=== PATIENT | male | born 1995 | race Caucasian/White ===

== ENCOUNTER 2021-03-14 16:40 | Inpatient (IN) | payer OTHER ==
[~2021-03-14] VITALS: Ht 182.9 cm; Wt 85.8 kg
[2021-03-14 17:56] LABS: BILIRUBIN, URINE MANUAL NEGATIVE (NEGATIVE); GLUCOSE, URINE (UA) MANUAL NEGATIVE (NEGATIVE); KETONE, URINE MANUAL NEGATIVE (NEGATIVE); UROBILINOGEN, URINE MANUAL NORMAL (NORMAL)
[2021-03-14 17:59] LABS: BACTERIA, URINE NONE SEEN; HYALINE CAST, URINE NONE SEEN /lpf (0-1); RBC, URINE 0-1 /hpf (0-3); SQUAMOUS EPITHELIAL CELL URINE SMALL AMOUNT /hpf (SMALL AMT)
[2021-03-14] MEDS ORDERED: NS 2,570 ML in IV 1 EA IV ONE (19:10)
[2021-03-14] MEDS ORDERED: MORPHINE 4 MG/ML 1ML VIAL/SYRINGE (J2270) IV ONE (19:10)
[2021-03-14 19:46] LABS: BASO % 0.2 % (0.0-1.0); EOS # 0.1 10^3/uL (0.0-0.5); EOS % 0.7 % (0.0-3.0); HEMATOCRIT 43.5 % (42.0-52.0); HEMOGLOBIN 15.1 g/dl (13.5-17.5); LYMPH # 1.2 10^3/uL (1.5-5.0); LYMPH % 13.9 % (24.0-44.0); MEAN CORPUSCULAR HEMOGLOBIN 31.3 pg (27.0-33.0); MEAN CORPUSCULAR HGB CONC 34.7 g/dl (32.0-36.5); MEAN CORPUSCULAR VOLUME 90.2 fl (80.0-96.0); MONO # 0.5 10^3/uL (0.0-0.8); MONO % 5.9 % (2.0-8.0); NEUTROPHILS # 6.7 10^3/uL (1.5-8.5); NEUTROPHILS % 78.8 % (36.0-66.0); PLATELET COUNT, AUTOMATED 248 10^3/uL (150-450); RED BLOOD COUNT 4.82 10^6/uL (4.30-6.10); WHITE BLOOD COUNT 8.5 10^3/uL (4.0-10.0)
[2021-03-14] MEDS ORDERED: HOME MED LIST COMPLETE! XX SCH (19:50)
[2021-03-14 20:48] LABS: ALBUMIN 4.3 GM/DL (3.2-5.2); ALT/SGPT 228 U/L (12-78); BILIRUBIN,DIRECT 0.2 MG/DL (0.0-0.2); BILIRUBIN,TOTAL 0.7 MG/DL (0.2-1.0); LIPASE 94 U/L (73-393); TOTAL PROTEIN 7.1 GM/DL (6.4-8.2)
[2021-03-14 21:30] LABS: CPK CREATINE PHOSPHOKINASE 51490 U/L (39-308)
[2021-03-14] MEDS: NS 1,000 ML IV SCH (22:10)
[2021-03-14 22:46] LABS: HEPATITIS C VIRUS ABY INDEX 0.1 INDEX (<0.8)
[2021-03-14 22:47] LABS: HEPATITIS B CORE ANTIBODY IGM NEGATIVE (NEGATIVE)
[2021-03-14] MEDS ORDERED: LIDOCAINE 5% (LIDODERM) PATCH TD ONE (22:50)
[2021-03-14] MEDS ORDERED: **NOTE PATIENT COMMENT** MISC XX SCH (22:50)
[2021-03-15] MEDS: ACETAMINOPHEN TAB 650MG DOSE (2X325MG) PO PRN ×3 (00:31→23:59)
[2021-03-15 00:49] LABS: RSV AMPLIFICATION NEGATIVE (NEGATIVE)
[2021-03-15 01:45] VITALS: BP 116/73
[2021-03-15 01:53] LABS: BLOOD UREA NITROGEN 14 MG/DL (7-18); CALCIUM LEVEL 7.9 MG/DL (8.5-10.1); CARBON DIOXIDE LEVEL 28 MEQ/L (21-32); CHLORIDE LEVEL 113 MEQ/L (98-107); CPK CREATINE PHOSPHOKINASE 59462 U/L (39-308); CREATININE FOR GFR 0.97 MG/DL (0.70-1.30); GLOMERULAR FILTRATION RATE > 60.0 (>60); GLUCOSE, FASTING 107 MG/DL (70-100); MAGNESIUM LEVEL 1.9 MG/DL (1.8-2.4); POTASSIUM SERUM 3.9 MEQ/L (3.5-5.1); SODIUM LEVEL 145 MEQ/L (136-145); TROPONIN I < 0.02 NG/ML (< 0.10)
[2021-03-15] MEDS ORDERED: oxyCODONE 5MG TAB PO ONE (02:15)
[2021-03-15] MEDS: NS 1,000 ML IV SCH ×7 (02:26→23:43)
[2021-03-15 06:00] VITALS: BP 112/69
[2021-03-15 06:16] LABS: BASO % 0.5 % (0.0-1.0); EOS # 0.2 10^3/uL (0.0-0.5); HEMATOCRIT 37.1 % (42.0-52.0); MEAN CORPUSCULAR HEMOGLOBIN 31.2 pg (27.0-33.0); MEAN CORPUSCULAR HGB CONC 33.4 g/dl (32.0-36.5); MEAN CORPUSCULAR VOLUME 93.2 fl (80.0-96.0); MONO # 0.5 10^3/uL (0.0-0.8); MONO % 8.1 % (2.0-8.0); NEUTROPHILS # 3.5 10^3/uL (1.5-8.5); NEUTROPHILS % 56.1 % (36.0-66.0); PLATELET COUNT, AUTOMATED 196 10^3/uL (150-450); RED BLOOD COUNT 3.98 10^6/uL (4.30-6.10); WHITE BLOOD COUNT 6.3 10^3/uL (4.0-10.0)
[2021-03-15 06:25] LABS: HEMOGLOBIN 12.4 g/dl (13.5-17.5)
[2021-03-15 07:48] LABS: BLOOD UREA NITROGEN 11 MG/DL (7-18); CALCIUM LEVEL 7.8 MG/DL (8.5-10.1); CARBON DIOXIDE LEVEL 25 MEQ/L (21-32); CHLORIDE LEVEL 113 MEQ/L (98-107); CPK CREATINE PHOSPHOKINASE 52290 U/L (39-308); GLOMERULAR FILTRATION RATE > 60.0 (>60); GLUCOSE, FASTING 93 MG/DL (70-100); SODIUM LEVEL 143 MEQ/L (136-145)
[2021-03-15 08:19] LABS: HEPATITIS B SURFACE ANTIGEN NEGATIVE (NEGATIVE)
[2021-03-15 10:00] VITALS: BP 118/76
[2021-03-15 10:13] LABS: BLOOD UREA NITROGEN 10 MG/DL (7-18); CARBON DIOXIDE LEVEL 26 MEQ/L (21-32); CHLORIDE LEVEL 114 MEQ/L (98-107); CPK CREATINE PHOSPHOKINASE 50825 U/L (39-308); CREATININE FOR GFR 0.74 MG/DL (0.70-1.30); GLOMERULAR FILTRATION RATE > 60.0 (>60); GLUCOSE, FASTING 99 MG/DL (70-100); SODIUM LEVEL 144 MEQ/L (136-145)
[2021-03-15 14:00] VITALS: BP 118/76
[2021-03-15] MEDS: MORPHINE 2 MG/ML 1ML VIAL (J2270) IV PRN ×2 (14:54→20:21)
[2021-03-15 18:00] VITALS: BP 127/87
[2021-03-15 22:00] VITALS: BP 130/87
[2021-03-16 02:00] VITALS: BP 112/78
[2021-03-16] MEDS: NS 1,000 ML IV SCH ×7 (02:57→23:37)
[2021-03-16 06:00] VITALS: BP 113/79
[2021-03-16] MEDS: ACETAMINOPHEN TAB 650MG DOSE (2X325MG) PO PRN (06:10)
[2021-03-16] MEDS ORDERED: MORPHINE 4 MG/ML 1ML VIAL/SYRINGE (J2270) IV ONE (06:20)
[2021-03-16 06:23] LABS: BASO % 0.5 % (0.0-1.0); EOS # 0.2 10^3/uL (0.0-0.5); EOS % 3.1 % (0.0-3.0); HEMATOCRIT 38.2 % (42.0-52.0); HEMOGLOBIN 12.8 g/dl (13.5-17.5); LYMPH # 1.6 10^3/uL (1.5-5.0); LYMPH % 28.2 % (24.0-44.0); MEAN CORPUSCULAR HEMOGLOBIN 31.1 pg (27.0-33.0); MEAN CORPUSCULAR HGB CONC 33.5 g/dl (32.0-36.5); MEAN CORPUSCULAR VOLUME 92.7 fl (80.0-96.0); MONO # 0.5 10^3/uL (0.0-0.8); NEUTROPHILS # 3.5 10^3/uL (1.5-8.5); NEUTROPHILS % 59.9 % (36.0-66.0); PLATELET COUNT, AUTOMATED 196 10^3/uL (150-450); RED BLOOD COUNT 4.12 10^6/uL (4.30-6.10); WHITE BLOOD COUNT 5.8 10^3/uL (4.0-10.0)
[2021-03-16 07:48] LABS: ALBUMIN 3.3 GM/DL (3.2-5.2); ALT/SGPT 276 U/L (12-78); BILIRUBIN,TOTAL 0.3 MG/DL (0.2-1.0); BLOOD UREA NITROGEN 6 MG/DL (7-18); CALCIUM LEVEL 8.3 MG/DL (8.5-10.1); CARBON DIOXIDE LEVEL 28 MEQ/L (21-32); CHLORIDE LEVEL 111 MEQ/L (98-107); CPK CREATINE PHOSPHOKINASE 50770 U/L (39-308); CREATININE FOR GFR 0.55 MG/DL (0.70-1.30); GLOMERULAR FILTRATION RATE > 60.0 (>60); GLUCOSE, FASTING 93 MG/DL (70-100); POTASSIUM SERUM 4.1 MEQ/L (3.5-5.1); SODIUM LEVEL 143 MEQ/L (136-145); TOTAL PROTEIN 5.5 GM/DL (6.4-8.2)
[2021-03-16 14:00] VITALS: BP 129/84
[2021-03-16] MEDS: traMADol 50 MG TAB PO PRN (15:15)
[2021-03-16] MEDS: PERCOCET 5MG/325MG TAB PO PRN (18:59)
[2021-03-16 22:00] VITALS: BP 150/97
[2021-03-17] MEDS: PERCOCET 5MG/325MG TAB PO PRN ×3 (00:15→20:58)
[2021-03-17] MEDS: NS 1,000 ML IV SCH ×7 (02:57→21:23)
[2021-03-17 06:00] VITALS: BP 113/70
[2021-03-17 06:22] LABS: BASO % 0.2 % (0.0-1.0); EOS # 0.1 10^3/uL (0.0-0.5); EOS % 2.8 % (0.0-3.0); HEMATOCRIT 37.5 % (42.0-52.0); HEMOGLOBIN 12.5 g/dl (13.5-17.5); LYMPH # 1.7 10^3/uL (1.5-5.0); LYMPH % 33.3 % (24.0-44.0); MEAN CORPUSCULAR HEMOGLOBIN 31.3 pg (27.0-33.0); MEAN CORPUSCULAR HGB CONC 33.3 g/dl (32.0-36.5); MONO # 0.3 10^3/uL (0.0-0.8); MONO % 6.9 % (2.0-8.0); NEUTROPHILS # 2.8 10^3/uL (1.5-8.5); NEUTROPHILS % 56.4 % (36.0-66.0); PLATELET COUNT, AUTOMATED 192 10^3/uL (150-450); RED BLOOD COUNT 3.99 10^6/uL (4.30-6.10)
[2021-03-17 07:35] LABS: BLOOD UREA NITROGEN 6 MG/DL (7-18); CALCIUM LEVEL 8.1 MG/DL (8.5-10.1); CARBON DIOXIDE LEVEL 27 MEQ/L (21-32); CHLORIDE LEVEL 111 MEQ/L (98-107); CREATININE FOR GFR 0.58 MG/DL (0.70-1.30); GLOMERULAR FILTRATION RATE > 60.0 (>60); GLUCOSE, FASTING 85 MG/DL (70-100); POTASSIUM SERUM 3.8 MEQ/L (3.5-5.1); SODIUM LEVEL 144 MEQ/L (136-145)
[2021-03-17 07:36] LABS: CPK CREATINE PHOSPHOKINASE 37960 U/L (39-308)
[2021-03-17] MEDS: traMADol 50 MG TAB PO PRN (08:08)
[2021-03-17 14:00] VITALS: BP 121/79
[2021-03-17 22:00] VITALS: BP 134/86
[2021-03-18] MEDS: NS 1,000 ML IV SCH ×4 (00:43→10:43)
[2021-03-18 06:00] VITALS: BP 116/67
[2021-03-18 06:32] LABS: BASO % 0.3 % (0.0-1.0); EOS # 0.2 10^3/uL (0.0-0.5); EOS % 2.9 % (0.0-3.0); HEMATOCRIT 38.2 % (42.0-52.0); LYMPH # 1.5 10^3/uL (1.5-5.0); LYMPH % 23.1 % (24.0-44.0); MEAN CORPUSCULAR HEMOGLOBIN 31.4 pg (27.0-33.0); MEAN CORPUSCULAR VOLUME 92.3 fl (80.0-96.0); MONO # 0.5 10^3/uL (0.0-0.8); MONO % 7.2 % (2.0-8.0); NEUTROPHILS # 4.4 10^3/uL (1.5-8.5); NEUTROPHILS % 66.2 % (36.0-66.0); PLATELET COUNT, AUTOMATED 197 10^3/uL (150-450); RED BLOOD COUNT 4.14 10^6/uL (4.30-6.10); WHITE BLOOD COUNT 6.6 10^3/uL (4.0-10.0)
[2021-03-18] MEDS: PERCOCET 5MG/325MG TAB PO PRN (06:45)
[2021-03-18 08:10] LABS: BLOOD UREA NITROGEN 6 MG/DL (7-18); CALCIUM LEVEL 8.6 MG/DL (8.5-10.1); CARBON DIOXIDE LEVEL 29 MEQ/L (21-32); CHLORIDE LEVEL 110 MEQ/L (98-107); CPK CREATINE PHOSPHOKINASE 18226 U/L (39-308); CREATININE FOR GFR 0.62 MG/DL (0.70-1.30); GLOMERULAR FILTRATION RATE > 60.0 (>60); GLUCOSE, FASTING 92 MG/DL (70-100); POTASSIUM SERUM 3.8 MEQ/L (3.5-5.1); SODIUM LEVEL 143 MEQ/L (136-145)
== END 2021-03-18 11:31 | disposition home or self-care (01) | DRG 558 ==
LOC: M ED 16:40 → M ED INP 22:50 → ENRESERV 03-15 00:16 → M MSPAV 03-15 01:40
PROVIDERS: ADMIT Family Medicine; ATTEND Neuromusculoskeletal Medicine & OMM
DX: M62.82 Rhabdomyolysis (principal); R74.01 Elevation of levels of liver transaminase levels; F17.220 Nicotine dependence, chewing tobacco, uncomplicated; R03.0 Elevated blood-pressure reading, without diagnosis of hypertension; K58.0 Irritable bowel syndrome with diarrhea; Z90.49 Acquired absence of other specified parts of digestive tract; Z88.8 Allergy status to other drugs, medicaments and biological substances

== ENCOUNTER 2021-06-12 23:33 | Inpatient (IN) | payer OTHER ==
[~2021-06-12] VITALS: Ht 182.9 cm; Wt 81.8 kg
--- OUTSIDE RECORDS SUMMARY | 2021-06-12 23:38 | CCD ---
Author Author [facility] Organization [facility] Address Unknown Phone Unavailable Support Name Relationship Address Phone [facility] Next Of Kin [address] [place] [address] Unavailable DAKOTAH MULLER Next Of Kin [address] [place] [address] STACY MULLER Next Of Kin [address] [place], [place] [id number] STACY MULLER [address] [place] [address] Unavailable Re-disclosure Warning The records that you are about to access may contain information from federally-assisted alcohol or drug abuse programs. If such information is present, then the following federally mandated warning applies: This information has been disclosed to you from records protected by federal confidentiality rules (42 CFR part 2). The federal rules prohibit you from making any further disclosure of this information unless further disclosure is expressly permitted by the written consent of the person to whom it pertains or as otherwise permitted by 42 CFR part 2. A general authorization for the release of medical or other information is NOT sufficient for this purpose. The Federal rules restrict any use of the information to criminally investigate or prosecute any alcohol or drug abuse patient.The records that you are about to access may contain highly sensitive health information, the redisclosure of which is protected by Article 27-F of the [facility] Public Health law. If you continue you may have access to information: Regarding HIV / AIDS; Provided by facilities licensed or operated by the [facility] Office of Mental Health; or Provided by the [facility] Office for People With Developmental Disabilities. If such information is present, then the following [facility] mandated warning applies: This information has been disclosed to you from confidential records which are protected by state law. State law prohibits you from making any further disclosure of this information without the specific written consent of the person to whom it pertains, or as otherwise permitted by law. Any unauthorized further disclosure in violation of state law may result in a fine or senior care sentence or both. A general authorization for the release of medical or other information is NOT sufficient authorization for further disc losure. Medications No Information Insurance Providers Payer name Policy type / Coverage type Policy ID Covered green party ID Covered green party's relationship to sanchez Policy Sanchez Plan Information [facility] [id number] Problems, Conditions, and Diagnoses No Information Surgeries/Procedures No Information Results ID Date Data Source [id number] 04/30/2021 02:20:00 PM EDT [facility] Name Value Range Interpretation Code Description Data Lindy rce(s) Supporting Document(s) SARS coronavirus 2 RNA Not Detected [facility] This lab was ordered by [facility] and reported by [facility]. ID Date Data Source [id number] 03/14/2021 11:56:00 PM EDT [facility] Name Value Range Interpretation Code Description Data Lindy rce(s) Supporting Document(s) SARS coronavirus 2 RNA [Presence] in Res piratory specimen by GIN with probe detection NEGATIVE [facility] This lab was ordered by [facility] a nd reported by [facility]. Procedure Social History No Information
[2021-06-12] MEDS ORDERED: SERT25TA21 PO (23:48)
[2021-06-12] MEDS ORDERED: HYDR-4570 PO (23:48)
[2021-06-13 01:06] LABS: HEMOGLOBIN 15.3 g/dl (13.5-17.5); MEAN CORPUSCULAR HGB CONC 33.3 g/dl (32.0-36.5); MEAN CORPUSCULAR VOLUME 90.2 fl (80.0-96.0); PLATELET COUNT, AUTOMATED 294 10^3/uL (150-450)
[2021-06-13 01:43] LABS: AMPHETAMINES LEVEL URINE NEGATIVE (NEGATIVE); BARBITURATES URINE NEGATIVE (NEGATIVE); BENZODIAZEPINES URINE NEGATIVE (NEGATIVE); CANNABINOIDS URINE NEGATIVE (NEGATIVE); COCAINE METABOLITE URINE NEGATIVE (NEGATIVE); METHADONE URINE NEGATIVE (NEGATIVE); OPIATES URINE NEGATIVE (NEGATIVE); PHENCYCLIDINE URINE NEGATIVE (NEGATIVE)
[2021-06-13 01:44] LABS: ACETAMINOPHEN LEVEL < 2.0 UG/ML (10.0-30.0); ALBUMIN 4.7 GM/DL (3.2-5.2); ALT/SGPT 45 U/L (12-78); BILIRUBIN,DIRECT 0.2 MG/DL (0.0-0.2); BILIRUBIN,TOTAL 0.5 MG/DL (0.2-1.0); BLOOD UREA NITROGEN 12 MG/DL (7-18); CALCIUM LEVEL 9.4 MG/DL (8.5-10.1); CARBON DIOXIDE LEVEL 30 MEQ/L (21-32); CHLORIDE LEVEL 106 MEQ/L (98-107); CREATININE FOR GFR 0.88 MG/DL (0.70-1.30); ETHYL ALCOHOL (ETHANOL) 0.142 % (0.000-0.010); GLOMERULAR FILTRATION RATE > 60.0 (>60); GLUCOSE, FASTING 96 MG/DL (70-100); POTASSIUM SERUM 3.6 MEQ/L (3.5-5.1); SALICYLATE LEVEL < 1.7 MG/DL (5.0-30.0); SODIUM LEVEL 139 MEQ/L (136-145); TOTAL PROTEIN 7.9 GM/DL (6.4-8.2)
[2021-06-13 06:08] LABS: RSV AMPLIFICATION NEGATIVE (NEGATIVE)
[2021-06-13] MEDS ORDERED: PREV1.1G TEETH (06:33)
[2021-06-13] MEDS ORDERED: HOME MED LIST COMPLETE! XX SCH (06:35)
[2021-06-13] MEDS ORDERED: SERTRALINE HCL 25 MG TABLET PO ONE (08:15)
[2021-06-13] MEDS ORDERED: ACETAMINOPHEN TAB 650MG DOSE (2X325MG) PO PRN (08:30)
[2021-06-13] MEDS ORDERED: traZODone 50 MG TAB PO PRN (08:30)
[2021-06-13] MEDS ORDERED: hydrOXYzine 25 MG TAB PO PRN (08:30)
[2021-06-13] MEDS ORDERED: MAALOX 30 ML SUSP *UDC PO PRN (08:30)
[2021-06-13] MEDS ORDERED: MOM 30ML SUSPENSION UDC PO PRN (08:30)
--- OUTSIDE RECORDS SUMMARY | 2021-06-13 08:40 | CCD ---
Author Author [facility] Organization [facility] Address Unknown Phone Unavailable Support Name Relationship Address Phone [facility] Next Of Kin [address] [place] [address] Unavailable DAKOTAH MULLER Next Of Kin [address] [place] [address] STACY MULLER Next Of Kin [address] [place] [address] STACY MULLER [address] [place] [address] Unavailable Re-disclosure Warning The records that you [...] is protected by Article 27-F of the [facility] Public Health law. If you continue you may have access to information: Regarding HIV / AIDS; Provided by facilities licensed or operated by the [facility] Office of Mental Health; or Provided by the [facility] Office for People With Developmental Disabilities. If such information is present, then the following [facility] mandated warning applies: This information has been [...] law may result in a fine or skilled nursing sentence or both. A general authorization for the release of medical or other information is NOT sufficient authorization for further disc losure. Medications No Information Insurance Providers Payer name Policy type / Coverage type Policy ID Covered libertarian ID Covered libertarian's relationship to sanchez Policy Sanchez Plan Information [facility] [employer] [id number] Problems, Conditions, and Diagnoses No Information Surgeries/Procedures No Information Results ID Date Data Source [id number] 04/30/2021 02:20:00 PM EDT [facility] Name Value Range Interpretation Code Description Data Lindy rce(s) Supporting Document(s) SARS coronavirus 2 RNA Not Detected [facility] [place] This lab was ordered by [facility] and reported by [facility]. ID Date Data Source [id number] 03/14/2021 11:56:00 PM EDT [facility] Name Value Range Interpretation Code Description Data Lindy rce(s) Supporting Document(s) SARS coronavirus 2 RNA [Presence] in Res piratory specimen by GIN with probe detection NEGATIVE [facility] This lab was ordered by [facility] a nd reported by [facility]. Procedure Social History No Information
[2021-06-13] MEDS: NICOTINE 21MG/24HR 1 EA TRANSDERMAL TD SCH (08:54)
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
[2021-06-13 15:33] VITALS: BP 126/88
[2021-06-13] MEDS ORDERED: NICOTINE 21MG/24HR 1 EA TRANSDERMAL TD ONE (19:00)
[2021-06-13] MEDS: hydrOXYzine 50 MG TAB PO SCH (20:25)
[2021-06-14 06:38] VITALS: BP 144/79
[2021-06-14] MEDS ORDERED: TRAZ-252 PO (08:25)
[2021-06-14] MEDS ORDERED: NICO21PAT TD (08:25)
[2021-06-14] MEDS ORDERED: HYDR50TA70 PO (08:25)
[2021-06-14] MEDS ORDERED: SERT50TA29 PO (08:25)
[2021-06-14] MEDS: NICOTINE 21MG/24HR 1 EA TRANSDERMAL TD SCH (08:42)
[2021-06-14] MEDS: hydrOXYzine 50 MG TAB PO SCH (08:44)
[2021-06-14] MEDS ORDERED: SERTRALINE HCL 25 MG TABLET PO SCH (09:00)
[2021-06-14] MEDS ORDERED: SERTRALINE HCL 50 MG TAB PO SCH (09:00)
--- NOTE | 2021-06-14 09:48 | HPEPDOC ---
[facility] Medical History & Physical Date of Admission Jun 13, 2021 Date of Service: Jun 14, 2021 History and Physical CHIEF COMPLAINT: Suicidal ideation, severe depression HISTORY OF PRESENT ILLNESS: 25-year-old male with a history of severe depression admitted to the inpatient mental health unit due to suicidal ideation with plans to shoot himself with his gun. He has no medical complaints and denies any fever chills weight gain w eight loss polyuria polydipsia polyaphasia nausea vomiting diarrhea abdominal pain chest pain pressure tightness shortness of breath lightheadedness dizziness bright red blood per rectum melena black tarry stools bilateral upper lower extremity weakness paresthesias joint pains muscle aches skin rash ear pain changes in vision diplopia vertigo. PAST MEDICAL HISTORY: Depression, rhabdomyolysis, transaminitis, suicidal ideation. 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 REVIEW OF SYSTEMS: 10 point system negative aside from positive findings in HPI HOME MEDICATIONS: Please see below. PHYSICAL EXAMINATION: VITAL SIGNS: See below GENERAL APPEARANCE: No icterus pallor or cyanosis no distress HEENT: Extraocular muscles intact moist mucous membranes no thyromegaly or cervical lymphadenopathy no tracheal deviation or stridor CARDIOVASCULAR: S1-S2 regular rate rhythm LUNGS: Clear to auscultation no wheezing rales or rhonchi air entry is equal bilaterally ABDOMEN: Positive bowel sounds soft nontender nondistended no rebound or guarding EXTREMITIES: No cyanosis clubbing or pitting edema LABORATORY DATA: See below. MICROBIOLOGY: Please see below. ASSESSMENT: 25-year-old admitted for suicidal ideation and severe depression Suicide ideation/severe depression with history of PTSD: Managed by primary psychiatric team Patient has no other acute medical issues hospitalist service will sign off. Vital Signs Vital Signs Date Time Temp Pulse Resp B/P (MAP) Pulse Ox O2 Delivery O2 Flow Rate FiO2 06/14/21 06:38 98.3 73 20 144/79 (100) 97 Room Air Home Medications Scheduled Fluoride (Sodium) (Prevident) 56 Gm Gel..gram., 1 DOSE TEETH Q2D Nicotine (Nicotine Patch) 21 Mg Patch.td24, 1 PATCH TD DAILY for Nicotine Withdrawal Sertraline HCl (Sertraline HCl) 50 Mg Tablet, 50 MG PO QAM for Depression Scheduled PRN Hydroxyzine HCl (Hydroxyzine HCl) 50 Mg Tablet, 50 MG PO BIDP PRN for ANXIETY/AGITATION Trazodone HCl (Trazodone HCl) 50 Mg Tablet, 50 MG PO QHSP PRN for INSOMNIA Allergies Coded Allergies: promethazine (Verified Adverse Reaction, Unknown, 03/14/21) vomit A-FIB/CHADSVASC A-FIB History Current/History of A-Fib/PAF?: No Current PO Anticoag Therapy: No Age/Risk Factor Scoring CHADSVASC: CHADSVASC Response (Comments) Value Age Risk Factor Age < 65 years old 0 Gender Risk Factor Male 0 Hx of CHF No 0 Hx of HTN No 0 Hx of Stroke/TIA/or VTE No 0 Hx of Diabetes No 0 Hx of Vascular Disease No 0 Total 0 Treatment Treatment ordered: NONE EDDY BALLARD MD Jun 14, 2021 09:48
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
== END 2021-06-14 13:00 | disposition home or self-care (01) | DRG 885 ==
LOC: M ED 23:33 → M ED INP 06-13 08:29 → M PSY 06-13 09:26
PROVIDERS: ADMIT Psychiatry & Neurology Psychiatry; ATTEND Psychiatry & Neurology Psychiatry
DX: F32.1 Major depressive disorder, single episode, moderate (principal); R45.851 Suicidal ideations; F10.10 Alcohol abuse, uncomplicated; F17.210 Nicotine dependence, cigarettes, uncomplicated; F43.10 Post-traumatic stress disorder, unspecified; Z91.51 Personal history of suicidal behavior; Z93.0 Tracheostomy status; Z20.822 Contact with and (suspected) exposure to COVID-19; Z88.8 Allergy status to other drugs, medicaments and biological substances

== ENCOUNTER 2021-07-29 02:22 | Inpatient (IN) | payer OTHER ==
[~2021-07-29] VITALS: Ht 182.9 cm; Wt 81.8 kg
[~2021-07-29 02:22] MED LIST: HYDR-4570 PO; HYDR50TA70 PO; NICO21PAT TD; PREV1.1G TEETH; SERT25TA21 PO; SERT50TA29 PO; TRAZ-252 PO
[2021-07-29 04:25] LABS: BASO % 0.6 % (0.0-1.0); EOS # 0.1 10^3/uL (0.0-0.5); EOS % 0.9 % (0.0-3.0); HEMATOCRIT 42.8 % (42.0-52.0); HEMOGLOBIN 14.6 g/dl (13.5-17.5); LYMPH # 1.8 10^3/uL (1.5-5.0); LYMPH % 34.3 % (24.0-44.0); MEAN CORPUSCULAR HEMOGLOBIN 30.3 pg (27.0-33.0); MEAN CORPUSCULAR HGB CONC 34.1 g/dl (32.0-36.5); MEAN CORPUSCULAR VOLUME 88.8 fl (80.0-96.0); MONO # 0.4 10^3/uL (0.0-0.8); MONO % 7.3 % (2.0-8.0); NEUTROPHILS % 56.5 % (36.0-66.0); PLATELET COUNT, AUTOMATED 241 10^3/uL (150-450); RED BLOOD COUNT 4.82 10^6/uL (4.30-6.10); WHITE BLOOD COUNT 5.3 10^3/uL (4.0-10.0)
[2021-07-29 04:33] LABS: AMPHETAMINES LEVEL URINE NEGATIVE (NEGATIVE); BARBITURATES URINE NEGATIVE (NEGATIVE); BENZODIAZEPINES URINE NEGATIVE (NEGATIVE); CANNABINOIDS URINE NEGATIVE (NEGATIVE); COCAINE METABOLITE URINE NEGATIVE (NEGATIVE); METHADONE URINE NEGATIVE (NEGATIVE); OPIATES URINE NEGATIVE (NEGATIVE); PHENCYCLIDINE URINE NEGATIVE (NEGATIVE)
[2021-07-29 04:59] LABS: ACETAMINOPHEN LEVEL < 2.0 UG/ML (10.0-30.0); ALBUMIN 4.2 GM/DL (3.2-5.2); ALT/SGPT 33 U/L (12-78); BILIRUBIN,DIRECT < 0.1 MG/DL (0.0-0.2); BILIRUBIN,TOTAL 0.4 MG/DL (0.2-1.0); BLOOD UREA NITROGEN 10 MG/DL (7-18); CALCIUM LEVEL 8.7 MG/DL (8.5-10.1); CARBON DIOXIDE LEVEL 23 MEQ/L (21-32); CHLORIDE LEVEL 108 MEQ/L (98-107); CREATININE FOR GFR 0.79 MG/DL (0.70-1.30); ETHYL ALCOHOL (ETHANOL) 0.146 % (0.000-0.010); GLOMERULAR FILTRATION RATE > 60.0 (>60); GLUCOSE, FASTING 96 MG/DL (70-100); POTASSIUM SERUM 4.8 MEQ/L (3.5-5.1); SALICYLATE LEVEL < 1.7 MG/DL (5.0-30.0); SODIUM LEVEL 142 MEQ/L (136-145); TOTAL PROTEIN 7.6 GM/DL (6.4-8.2)
[2021-07-29] MEDS ORDERED: NS 1,000 ML IV ONE ×2 (05:55)
[2021-07-29 09:07] LABS: RSV AMPLIFICATION NEGATIVE (NEGATIVE)
[2021-07-29] MEDS ORDERED: SELE25SHA TOP (15:46)
[2021-07-29] MEDS ORDERED: SERT50TA29 PO (15:46)
[2021-07-29] MEDS ORDERED: TRAZ-252 PO (15:46)
[2021-07-29] MEDS ORDERED: HYDR50TA70 PO (15:46)
[2021-07-29] MEDS ORDERED: KETO2SHA8 TOP (15:46)
[2021-07-29] MEDS ORDERED: HOME MED LIST COMPLETE! XX SCH (15:50)
[2021-07-29] MEDS ORDERED: traZODone 50 MG TAB PO PRN (17:55)
[2021-07-29] MEDS ORDERED: NICOTINE 21MG/24HR 1 EA TRANSDERMAL TD PRN (17:55)
[2021-07-29] MEDS ORDERED: OLANZapine ORAL DISINTEGRATING TAB 5MG PO PRN (17:55)
[2021-07-29] MEDS ORDERED: ACETAMINOPHEN TAB 650MG DOSE (2X325MG) PO PRN (17:55)
[2021-07-29] MEDS ORDERED: MAALOX 30 ML SUSP *UDC PO PRN (17:55)
[2021-07-29] MEDS ORDERED: MOM 30ML SUSPENSION UDC PO PRN (17:55)
[2021-07-30 00:13] VITALS: BP 121/82
[2021-07-30] MEDS ORDERED: hydrOXYzine 50 MG TAB PO PRN (08:30)
[2021-07-30] MEDS: SERTRALINE HCL 50 MG TAB PO SCH (09:19)
[2021-07-30 18:06] VITALS: BP 142/88
[2021-07-30] MEDS ORDERED: traZODone 50 MG TAB PO SCH (21:00)
[2021-07-31 06:24] VITALS: BP 133/65
[2021-07-31] MEDS: SERTRALINE HCL 50 MG TAB PO SCH (08:29)
[2021-07-31 16:52] VITALS: BP 139/84
[2021-08-01 06:13] VITALS: BP 134/86
[2021-08-01] MEDS ORDERED: SERT50TA29 PO (08:07)
[2021-08-01] MEDS: SERTRALINE HCL 50 MG TAB PO SCH (09:44)
== END 2021-08-01 14:00 | disposition home or self-care (01) | DRG 881 ==
LOC: M ED 02:22 → M ED INP 17:55 → M PSY 07-30 00:14
PROVIDERS: ADMIT Psychiatry & Neurology Psychiatry; ATTEND Psychiatry & Neurology Psychiatry
DX: F43.21 Adjustment disorder with depressed mood (principal); R45.851 Suicidal ideations; F10.120 Alcohol abuse with intoxication, uncomplicated; F17.290 Nicotine dependence, other tobacco product, uncomplicated; F43.10 Post-traumatic stress disorder, unspecified; Z63.0 Problems in relationship with spouse or partner; Z20.822 Contact with and (suspected) exposure to COVID-19; Z79.899 Other long term (current) drug therapy; Z88.8 Allergy status to other drugs, medicaments and biological substances; Z90.49 Acquired absence of other specified parts of digestive tract

== ENCOUNTER 2021-10-31 06:31 | Emergency (ER) | payer OTHER ==
[~2021-10-31] VITALS: Ht 182.9 cm; Wt 84.1 kg
[~2021-10-31 06:31] MED LIST changes: +KETO2SHA8 TOP; +SELE25SHA TOP
[2021-10-31 07:35] LABS: BASO % 0.4 % (0.0-1.0); EOS # 0.1 10^3/uL (0.0-0.5); EOS % 2.4 % (0.0-3.0); HEMATOCRIT 39.1 % (42.0-52.0); HEMOGLOBIN 13.2 g/dl (13.5-17.5); LYMPH # 1.5 10^3/uL (1.5-5.0); LYMPH % 28.1 % (24.0-44.0); MEAN CORPUSCULAR HGB CONC 33.8 g/dl (32.0-36.5); MEAN CORPUSCULAR VOLUME 88.9 fl (80.0-96.0); MONO # 0.5 10^3/uL (0.0-0.8); MONO % 9.9 % (2.0-8.0); NEUTROPHILS # 3.2 10^3/uL (1.5-8.5); PLATELET COUNT, AUTOMATED 221 10^3/uL (150-450); WHITE BLOOD COUNT 5.3 10^3/uL (4.0-10.0)
[2021-10-31 08:18] LABS: ALBUMIN 3.6 GM/DL (3.2-5.2); ALT/SGPT 34 U/L (12-78); BILIRUBIN,DIRECT < 0.1 MG/DL (0.0-0.2); BILIRUBIN,TOTAL 0.4 MG/DL (0.2-1.0); BLOOD UREA NITROGEN 13 MG/DL (7-18); CALCIUM LEVEL 8.7 MG/DL (8.5-10.1); CARBON DIOXIDE LEVEL 29 MEQ/L (21-32); CHLORIDE LEVEL 111 MEQ/L (98-107); GLOMERULAR FILTRATION RATE > 60.0 (>60); GLUCOSE, FASTING 99 MG/DL (70-100); LIPASE 101 U/L (73-393); POTASSIUM SERUM 4.2 MEQ/L (3.5-5.1); SODIUM LEVEL 143 MEQ/L (136-145); TOTAL PROTEIN 6.2 GM/DL (6.4-8.2)
[2021-10-31 09:02] LABS: GC DNA AMPLIFICATION NEGATIVE (NEGATIVE)
[2021-10-31 11:51] VITALS: BP 123/84
== END 2021-10-31 11:57 | disposition home or self-care (01) ==
LOC: M ED 06:31
DX: R10.9 Unspecified abdominal pain (principal); R30.0 Dysuria; Z88.8 Allergy status to other drugs, medicaments and biological substances; Z77.098 Contact with and (suspected) exposure to other hazardous, chiefly nonmedicinal, chemicals

== ENCOUNTER 2022-02-06 19:47 | Emergency (ER) | payer OTHER ==
[~2022-02-06] VITALS: Ht 182.9 cm; Wt 81.8 kg
[2022-02-06] MEDS ORDERED: KETOROLAC 30 MG/ML 1ML VIAL IV ONE (21:55)
[2022-02-06] MEDS ORDERED: NS 1,000 ML IV ONE (21:55)
[2022-02-06 22:18] LABS: BASO % 0.5 % (0.0-1.0); EOS # 0.1 10^3/uL (0.0-0.5); EOS % 1.7 % (0.0-3.0); HEMATOCRIT 43.2 % (42.0-52.0); HEMOGLOBIN 14.8 g/dl (13.5-17.5); LYMPH # 2.2 10^3/uL (1.5-5.0); LYMPH % 27.9 % (24.0-44.0); MEAN CORPUSCULAR HEMOGLOBIN 30.3 pg (27.0-33.0); MEAN CORPUSCULAR HGB CONC 34.3 g/dl (32.0-36.5); MEAN CORPUSCULAR VOLUME 88.3 fl (80.0-96.0); MONO # 0.5 10^3/uL (0.0-0.8); MONO % 6.9 % (2.0-8.0); NEUTROPHILS # 4.9 10^3/uL (1.5-8.5); NEUTROPHILS % 62.7 % (36.0-66.0); PLATELET COUNT, AUTOMATED 263 10^3/uL (150-450); RED BLOOD COUNT 4.89 10^6/uL (4.30-6.10); WHITE BLOOD COUNT 7.8 10^3/uL (4.0-10.0)
[2022-02-06 22:28] LABS: INR 1.01; PROTHROMBIN TIME 13.7 SECONDS (12.7-14.5)
[2022-02-06 22:29] LABS: PARTIAL THROMBOPLASTIN TIME 31.7 SECONDS (25.9-37.0)
[2022-02-06 22:42] LABS: D-DIMER QUANT < 270 ng/ml (<500)
[2022-02-06 22:50] LABS: CK-MB VALUE MASS < 1.0 NG/ML (<3.6); CPK CREATINE PHOSPHOKINASE 145 U/L (39-308); MB/CK RELATIVE INDEX 0.69 (< OR =4)
[2022-02-06 22:59] LABS: ALBUMIN 4.1 GM/DL (3.2-5.2); ALT/SGPT 33 U/L (12-78); BILIRUBIN,DIRECT < 0.1 MG/DL (0.0-0.2); BILIRUBIN,TOTAL 0.2 MG/DL (0.2-1.0); BLOOD UREA NITROGEN 13 MG/DL (7-18); CALCIUM LEVEL 8.9 MG/DL (8.5-10.1); CARBON DIOXIDE LEVEL 27 MEQ/L (21-32); CHLORIDE LEVEL 106 MEQ/L (98-107); CREATININE FOR GFR 0.93 MG/DL (0.70-1.30); FREE T4 0.89 NG/DL (0.76-1.46); GLOMERULAR FILTRATION RATE > 60.0 (>60); GLUCOSE, FASTING 95 MG/DL (70-100); LIPASE 109 U/L (73-393); NT-PRO BNP 15 PG/ML (<125); POTASSIUM SERUM 4.3 MEQ/L (3.5-5.1); SODIUM LEVEL 138 MEQ/L (136-145); TOTAL PROTEIN 7.2 GM/DL (6.4-8.2)
[2022-02-07 00:38] VITALS: BP 133/79
== END 2022-02-07 00:40 | disposition home or self-care (01) ==
LOC: M ED 19:47
DX: R07.9 Chest pain, unspecified (principal); R06.02 Shortness of breath; R11.0 Nausea; F33.9 Major depressive disorder, recurrent, unspecified; F41.9 Anxiety disorder, unspecified; Z88.8 Allergy status to other drugs, medicaments and biological substances; Z77.098 Contact with and (suspected) exposure to other hazardous, chiefly nonmedicinal, chemicals
CPT/HCPCS: 71046; 80048; 80076; 81001; 82550; 82553; 83690; 83880; 84439; 84443; 84484; 85025; 85379; 85610; 85730; 86140; 87486; 87581; 87633; 87798; 93005; 96361; 96374; 99284; J1885

== ENCOUNTER 2022-04-21 07:03 | Emergency (ER) | payer OTHER ==
[~2022-04-21] VITALS: Ht 182.9 cm; Wt 86.9 kg
[2022-04-21] MEDS ORDERED: HYDR-3363 (07:11)
[2022-04-21] MEDS ORDERED: SERT50TA29 (07:11)
[2022-04-21] MEDS ORDERED: KETOROLAC TROMETHAMINE 10 MG TAB PO ONE (07:35)
[2022-04-21] MEDS ORDERED: ACETAMINOPHEN 325 MG TAB PO ONE (07:35)
[2022-04-21] MEDS ORDERED: METH-1165 PO (08:52)
[2022-04-21] MEDS ORDERED: MEDR4PAK PO (08:52)
[2022-04-21 08:58] VITALS: BP 115/77
== END 2022-04-21 09:30 | disposition home or self-care (01) ==
LOC: M ED 07:03
DX: M54.42 Lumbago with sciatica, left side (principal); F32.A Depression, unspecified; F41.9 Anxiety disorder, unspecified; F43.10 Post-traumatic stress disorder, unspecified; Z79.899 Other long term (current) drug therapy; Z88.8 Allergy status to other drugs, medicaments and biological substances; F17.200 Nicotine dependence, unspecified, uncomplicated

== ENCOUNTER 2022-07-14 08:48 | Emergency (ER) | payer OTHER ==
[~2022-07-14] VITALS: Ht 182.9 cm; Wt 87.0 kg
[~2022-07-14 08:48] MED LIST changes: +HYDR-3363; +MEDR4PAK PO; +METH-1165 PO; +SERT50TA29
[2022-07-14] MEDS ORDERED: AMLO25TA PO (09:24)
[2022-07-14 10:03] LABS: BASO % 0.7 % (0.0-1.0); EOS # 0.2 10^3/uL (0.0-0.5); EOS % 2.7 % (0.0-3.0); HEMATOCRIT 42.7 % (42.0-52.0); HEMOGLOBIN 14.6 g/dl (13.5-17.5); LYMPH # 1.4 10^3/uL (1.5-5.0); LYMPH % 24.2 % (24.0-44.0); MEAN CORPUSCULAR HGB CONC 34.2 g/dl (32.0-36.5); MEAN CORPUSCULAR VOLUME 87.9 fl (80.0-96.0); MONO # 0.5 10^3/uL (0.0-0.8); MONO % 8.7 % (2.0-8.0); NEUTROPHILS # 3.6 10^3/uL (1.5-8.5); NEUTROPHILS % 63.5 % (36.0-66.0); PLATELET COUNT, AUTOMATED 262 10^3/uL (150-450); RED BLOOD COUNT 4.86 10^6/uL (4.30-6.10); WHITE BLOOD COUNT 5.6 10^3/uL (4.0-10.0)
[2022-07-14 10:17] LABS: INR 0.93; PARTIAL THROMBOPLASTIN TIME 30.7 SECONDS (24.8-34.2); PROTHROMBIN TIME 12.7 SECONDS (12.5-14.5)
[2022-07-14 10:37] LABS: CHLORIDE LEVEL 103 MMOL/L (98-107); SODIUM LEVEL 141 MMOL/L (136-145)
[2022-07-14 10:39] LABS: ALBUMIN 4.5 G/DL (3.2-5.2); CARBON DIOXIDE LEVEL 26 MMOL/L (20-31)
[2022-07-14 10:41] LABS: CK-MB VALUE MASS < 1.0 NG/ML (<3.6)
[2022-07-14 10:42] LABS: ETHYL ALCOHOL (ETHANOL) 0.003 % (0.000-0.010)
[2022-07-14 10:43] LABS: BLOOD UREA NITROGEN 11 MG/DL (9-23); GLUCOSE, FASTING 100 MG/DL (60-100)
[2022-07-14 10:44] LABS: ALKALINE PHOSPHATASE 79 U/L (46-116); CALCIUM LEVEL 9.6 MG/DL (8.5-10.1); MAGNESIUM LEVEL 1.8 MG/DL (1.8-2.4)
[2022-07-14 10:45] LABS: BILIRUBIN,TOTAL 0.3 MG/DL (0.3-1.2); GLOMERULAR FILTRATION RATE > 60.0 (>60)
[2022-07-14 10:46] LABS: ALT/SGPT 22 U/L (7.0-40); AST/SGOT 19 U/L (<34); BILIRUBIN,DIRECT 0.1 MG/DL (<0.4); TOTAL PROTEIN 7.1 G/DL (5.7-8.2)
[2022-07-14 11:03] LABS: CPK CREATINE PHOSPHOKINASE 88 U/L (46-171); MB/CK RELATIVE INDEX 1.13 (< OR =4)
[2022-07-14 11:33] VITALS: BP 126/87
== END 2022-07-14 11:41 | disposition home or self-care (01) ==
LOC: M ED 08:48
DX: R25.1 Tremor, unspecified (principal); I10 Essential (primary) hypertension; F43.10 Post-traumatic stress disorder, unspecified; F32.A Depression, unspecified; F41.9 Anxiety disorder, unspecified; Z88.8 Allergy status to other drugs, medicaments and biological substances; Z79.899 Other long term (current) drug therapy

== ENCOUNTER 2022-10-04 15:08 | Emergency (ER) | payer OTHER ==
[~2022-10-04] VITALS: Ht 182.9 cm; Wt 85.9 kg
[~2022-10-04 15:08] MED LIST changes: +AMLO25TA PO
[2022-10-04] MEDS ORDERED: KETOROLAC 30 MG/ML 1ML VIAL IM ONE (15:40)
[2022-10-04] MEDS ORDERED: ACETAMINOPHEN TAB 650MG DOSE (2X325MG) PO ONE (15:40)
[2022-10-04] MEDS ORDERED: NAPR-837 PO (16:34)
[2022-10-04] MEDS ORDERED: ASPE4PAD TOP (16:34)
[2022-10-04] MEDS ORDERED: METH-1165 PO (16:34)
[2022-10-04 16:38] VITALS: BP 123/79
== END 2022-10-04 16:45 | disposition home or self-care (01) ==
LOC: M ED 15:41
DX: M54.9 Dorsalgia, unspecified (principal); W00.0XXA Fall on same level due to ice and snow, initial encounter; F41.9 Anxiety disorder, unspecified; F32.9 Major depressive disorder, single episode, unspecified; F43.10 Post-traumatic stress disorder, unspecified; F17.200 Nicotine dependence, unspecified, uncomplicated; Z79.899 Other long term (current) drug therapy; Z88.8 Allergy status to other drugs, medicaments and biological substances
CPT/HCPCS: 71045; 72072; 96372; 99283; J1885

== ENCOUNTER 2022-10-07 15:59 | Emergency (ER) | payer OTHER ==
[~2022-10-07] VITALS: Ht 182.9 cm; Wt 95.2 kg
[~2022-10-07 15:59] MED LIST changes: +ASPE4PAD TOP; +NAPR-837 PO
[2022-10-07] MEDS ORDERED: LIDOCAINE 5% (LIDODERM) PATCH TD ONE (18:10)
[2022-10-07] MEDS ORDERED: KETOROLAC 60MG 2ML VIAL IM ONE (18:10)
[2022-10-07] MEDS ORDERED: LIDO1PAD TOP (20:17)
[2022-10-07 20:33] VITALS: BP 128/83
== END 2022-10-07 20:35 | disposition home or self-care (01) ==
LOC: M ED 15:59
DX: M54.6 Pain in thoracic spine (principal); W00.0XXA Fall on same level due to ice and snow, initial encounter; I10 Essential (primary) hypertension; Z90.89 Acquired absence of other organs; Z88.8 Allergy status to other drugs, medicaments and biological substances; Z79.899 Other long term (current) drug therapy
CPT/HCPCS: 72128; 96372; 99283; J1885